=== PATIENT | male | born 1945 | race Caucasian/White ===

== ENCOUNTER 2016-12-09 09:45 | Day surgery (SDC) | payer MEDICARE, OTHER ==
--- NOTE | ~2016-12-09 | EGD ---
EGD REPORT [facility] [address] [address] NAME: DEVYN LITTLE : [birth year] STATUS : REG [facility]#: [id number] AGE: 71 ADM/REG DATE : 12/09/16 MR#: [id number] REPORT SERV DATE: 12/09/16 DICTATED BY: DATE: REPORT STATUS : Draft [facility]ANSCRIBED BY: [facility] DATE: 12/09/16 [facility] Patient Name: Devyn Little Date of : 1945 Attending MD: NEY GARZA MD Procedure Date No Time: 12/09/2016 Procedure: Upper GI endoscopy Indications: Dysphagia Referring MD: Sarahy Gibbs Medicines: Monitored Anesthesia Care Complications: No immediate complications. Procedure: Pre-Anesthesia Assessment: - ASA Grade Assessment: III - A patient with severe systemic disease. After obtaining informed consent, the endoscope was passed under direct vision. Throughout the procedure, the patient's blood pressure, pulse, and oxygen saturations were monitored continuously. The GIF H190 [id number] was introduced through the mouth, and advanced to the duodenal bulb. The upper GI endoscopy was accomplished without difficulty. The patient tolerated the procedure well. Findings: The Z-line was irregular and was found 40 cm from the incisors. Biopsies were taken with a cold forceps for histology. A large amount of food (residue) was found in the gastric fundus, in the gastric body and in the gastric antrum. The duodenal bulb was normal. There is no endoscopic evidence of stenosis in the duodenal bulb. A guidewire was placed and the scope was withdrawn. Dilation was performed in the entire esophagus with a Savary dilator with no resistance at 54 Fr. Impression: - Z-line irregular, 40 cm from the incisors. Biopsied. - A large amount of food (residue) in the stomach. - Normal duodenal bulb. - Examination of the stomach was limited by residual food. Suspect delayed gastric emptying. Recommendation: - Patient has a contact number available for emergencies. The signs and symptoms of potential delayed complications were discussed with the patient. Return to normal activities tomorrow. Written discharge instructions were provided to the patient. EGD REPORT [address] [address] NAME: DEVYN LITTLE : [birth year] STATUS : REG [facility] [place] PAT#: [id number] AGE: 71 ADM/REG DATE : 12/09/16 MR#: [id number] REPORT SERV DATE: 12/09/16 DICTATED BY: DATE: REPORT STATUS : Draft TRANSCRIBED BY: [employer] DATE: 12/09/16 - Return to previous diet. - Discharge patient to home. - Continue present medications. - Await pathology results. - 12L EKG to review QTc interval and evaluate treatment options. Schedule GET. - Repeat the upper endoscopy in 4 weeks for retreatment. Procedure Code(s): --- Professional --- 87996, Esophagogastroduodenoscopy, flexible, transoral; with insertion of guide wire followed by passage of dilator(s) through esophagus over guide wire 91408, Esophagogastroduodenoscopy, flexible, transoral; with biopsy, single or multiple Diagnosis Code(s): --- Professional --- K22.8, Other specified diseases of esophagus R13.10, Dysphagia, unspecified CPT copyright 2013 [employer]. All rights reserved. The codes documented in this report are preliminary and upon graphic design manager review may be revised to meet current compliance requirements. NEY GARZA MD 12/09/2016 10:34 AM This report has been signed electronically. Number of Addenda: 0 Note Initiated On: 12/09/2016 8:34 AM Scope Withdrawal Time 0 hours 0 minutes 0 seconds [address] [id number]
[~2016-12-09 09:45] MED LIST: ADVIL PO; BEN25 PO; CORDARONE PO; DOCUSATE SODIUM PO; FLUOROURACIL51 TOP; GLUCXL5 PO; HALF81 PO; LIOR10 PO; LISINOPRIL40 MG PO; LOP25 PO; NORCO1 TA1 PO; NORV5 PO; PRAVACHOL40 MG PO; PRILO PO; V180SR PO; VITAMIN D31000 UNIT PO; ZESTRIL40 MG PO; ZYRTEC ALLGY10 MG PO
[2017-01-06] MEDS ORDERED: GLUCPH PO (13:13)
[2017-01-06] MEDS ORDERED: LIPITOR80 MG PO (13:13)
[2017-01-06] MEDS ORDERED: PRILO PO (13:13)
[2017-01-06] MEDS ORDERED: MULTIPLE VIT PO (13:16)
[2017-01-06] MEDS ORDERED: PR25 PO (13:35)
== END 2016-12-09 23:59 | disposition home health service (06) ==
LOC: DMU 09:45
PROVIDERS: Internal Medicine Gastroenterology
PROC: 0DB68ZX Excision of Stomach, Via Natural or Artificial Opening Endoscopic, Diagnostic (ICD-10-PCS; principal; 2016-12-09 11:00)
PROC: 0D758ZZ Dilation of Esophagus, Via Natural or Artificial Opening Endoscopic (ICD-10-PCS; 2016-12-09 11:00)
DX: R13.10 Dysphagia, unspecified (principal); K21.9 Gastro-esophageal reflux disease without esophagitis; Z95.1 Presence of aortocoronary bypass graft; Z88.8 Allergy status to other drugs, medicaments and biological substances; N18.2 Chronic kidney disease, stage 2 (mild); I12.9 Hypertensive chronic kidney disease with stage 1 through stage 4 chronic kidney disease, or unspecified chronic kidney disease; E78.00 Pure hypercholesterolemia, unspecified; M19.90 Unspecified osteoarthritis, unspecified site; Z90.49 Acquired absence of other specified parts of digestive tract; Z87.442 Personal history of urinary calculi; E11.22 Type 2 diabetes mellitus with diabetic chronic kidney disease; Z98.890 Other specified postprocedural states; Z87.891 Personal history of nicotine dependence
CPT/HCPCS: 82962; 88305; 93005

== ENCOUNTER 2017-01-13 06:13 | Day surgery (SDC) | payer MEDICARE, OTHER ==
--- NOTE | ~2017-01-13 | EGD ---
EGD REPORT [facility] [address] [address] NAME: DEVYN LITTLE : [birth year] STATUS : REG [facility]#: [id number] AGE: 71 ADM/REG DATE : 01/13/17 MR#: [id number] REPORT SERV DATE: 01/13/17 DICTATED BY: DATE: REPORT STATUS : Draft TRANSCRIBED BY: [employer] DATE: 01/13/17 Endoscopy Center Patient Name: Devyn Little Date of : 1945 Attending MD: NEY GARZA MD Procedure Date No Time: 01/13/2017 Procedure: Upper GI endoscopy Indications: Dysphagia, Suspected gastroparesis Referring MD: Sarahy Gibbs Medicines: Monitored Anesthesia Care Complications: No immediate complications. Procedure: Pre-Anesthesia Assessment: - ASA Grade Assessment: III - A patient with severe systemic disease. After obtaining informed consent, the endoscope was passed under direct vision. Throughout the procedure, the patient's blood pressure, pulse, and oxygen saturations were monitored continuously. The GIF H190 [id number] was introduced through the mouth, and advanced to the third part of duodenum. The upper GI endoscopy was accomplished without difficulty. The patient tolerated the procedure well. Findings: The Z-line was irregular and was found 40 cm from the incisors. Biopsies were taken with a cold forceps for histology. No other significant abnormalities were identified in a careful examination of the esophagus. There is no endoscopic evidence of areas of erosion, stenosis, ulcerations or varices in the entire esophagus. A guidewire was placed and the scope was withdrawn. Dilation was performed in the entire esophagus with a Savary dilator with no resistance at 57 Fr. The entire examined stomach was normal. Biopsies were taken with a cold forceps for histology. There is no endoscopic evidence of mucosal abnormalities, ulceration, varices, stenosis, mass or tumor in the entire examined stomach. The examined duodenum was normal. There is no endoscopic evidence of inflammation, mucosal abnormalities, stenosis or ulceration in the entire examined duodenum. The cardia and gastric fundus were normal on retroflexion. Impression: - Z-line irregular, 40 cm from the incisors. Biopsied. - Normal stomach. Biopsied. - Normal examined duodenum. EGD REPORT [address] [address] NAME: DEVYN LITTLE : 41 STATUS : REG [facility] [place] PAT#: [id number] AGE: 71 ADM/REG DATE : 01/13/17 MR#: [id number] REPORT SERV DATE: 01/13/17 DICTATED BY: DATE: REPORT STATUS : Draft TRANSCRIBED BY: [employer] DATE: 01/13/17 - Dilation attempted in the entire esophagus. Successful. Recommendation: - Patient has a contact number available for emergencies. The signs and symptoms of potential delayed complications were discussed with the patient. Return to normal activities tomorrow. Written discharge instructions were provided to the patient. - Return to previous diet. - Discharge patient to home. - Continue present medications. - Await pathology results. - Start erythromycin before meals to try to help stomache empty. Can use just before lunch and PM meal if you wish. - Return to my office in 4 weeks. - Recheck EKG in 2 weeks. Procedure Code(s): --- Professional --- 16898, Esophagogastroduodenoscopy, flexible, transoral; with insertion of guide wire followed by passage of dilator(s) through esophagus over guide wire 63955, Esophagogastroduodenoscopy, flexible, transoral; with biopsy, single or multiple Diagnosis Code(s): --- Professional --- K22.8, Other specified diseases of esophagus R13.10, Dysphagia, unspecified CPT copyright 2013 [employer]. All rights reserved. The codes documented in this report are preliminary and upon green end man review may be revised to meet current compliance requirements. NEY GARZA MD 01/13/2017 7:36 AM This report has been signed electronically. Number of Addenda: 0 Note Initiated On: 01/13/2017 7:17 AM Scope Withdrawal Time 0 hours 0 minutes 0 seconds [address] [id number]
[~2017-01-13 06:13] MED LIST changes: +GLUCPH PO; +LIPITOR80 MG PO; +MULTIPLE VIT PO; +PR25 PO
== END 2017-01-13 23:59 | disposition home or self-care (01) ==
LOC: DMU 06:13
PROVIDERS: Internal Medicine Gastroenterology
PROC: 0DB58ZX Excision of Esophagus, Via Natural or Artificial Opening Endoscopic, Diagnostic (ICD-10-PCS; 2017-01-13)
PROC: 0D758ZZ Dilation of Esophagus, Via Natural or Artificial Opening Endoscopic (ICD-10-PCS; principal; 2017-01-13 07:30)
PROC: 0DB68ZX Excision of Stomach, Via Natural or Artificial Opening Endoscopic, Diagnostic (ICD-10-PCS; 2017-01-13 07:30)
DX: K20.9 Esophagitis, unspecified (principal); I12.9 Hypertensive chronic kidney disease with stage 1 through stage 4 chronic kidney disease, or unspecified chronic kidney disease; E11.22 Type 2 diabetes mellitus with diabetic chronic kidney disease; N18.3 Chronic kidney disease, stage 3 (moderate); E78.00 Pure hypercholesterolemia, unspecified; I25.10 Atherosclerotic heart disease of native coronary artery without angina pectoris; M19.90 Unspecified osteoarthritis, unspecified site; Z95.5 Presence of coronary angioplasty implant and graft; Z88.1 Allergy status to other antibiotic agents; Z88.8 Allergy status to other drugs, medicaments and biological substances
CPT/HCPCS: 82962; 88305